=== PATIENT | female | born 1930 | race Caucasian/White ===

== ENCOUNTER → 2016-06-10 | Outpatient (CLI) | payer MEDICARE, OTHER ==
[~2016-06-10] MED LIST: CALCIUM 600 +1 EA14 PO; DAILY MULTIPLE1 EAC1 PO; EXCEDRIN DPS1 TAB; MOTRIN-DPS400 MG PO; OMEGA-3 DPS1000 MG PO; PREMARIN0.3 MG PO; SENOKOT DPS8.6 MG PO; TENORMIN-DPS25 MG PO; VALIUM-DPS5 MG PO; VITAMIN C100 MG PO; [UNRECOGNIZED DRUG - OTHER] PO
== END | disposition home or self-care (01) ==
LOC: RAD.S 10:32
DX: Z12.31 Encounter for screening mammogram for malignant neoplasm of breast (principal)

== ENCOUNTER → 2016-06-20 | Outpatient (CLI) | payer MEDICARE, OTHER | END | disposition home or self-care (01) | LOC: RAD.S 06-19 09:00 | PROC: 3E0S33Z Introduction of Anti-inflammatory into Epidural Space, Percutaneous Approach (ICD-10-PCS; principal; 2016-06-20) | DX: M54.5 Low back pain (principal); M54.16 Radiculopathy, lumbar region ==